=== PATIENT | female | born 1935 | race Hispanic/Latino ===

== ENCOUNTER 2017-04-23 13:24 | Emergency (ER) | payer OTHER, MEDICARE ==
[2017-04-23 13:49] LABS: BASOPHILS % (AUTO) 0.5 % (0.0-5.0); EOSINOPHILS % (AUTO) 3.1 % (0.0-8.0); HEMATOCRIT 35.6 % (36-48); MEAN CORPUSCULAR HEMOGLOBIN 30.4 pg (27.0-33.0); MEAN CORPUSCULAR HGB CONC 33.8 g/dL (32.0-36.0); MEAN CORPUSCULAR VOLUME 89.9 fL (79-99); MONOCYTES % (AUTO) 5.7 % (3.0-13.0); NEUTROPHILS % (AUTO) 70.7 % (40.0-77.0); PLATELET COUNT (AUTO) 290 K/uL (130-400); RED BLOOD CELL COUNT(AUTO) 3.96 MIL/uL (4.00-5.50); RED CELL DISTRIBUTION WIDTH 12.7 % (11.0-15.5); WHITE BLOOD COUNT (AUTO) 7.7 K/uL (4.8-10.8)
[2017-04-23] MEDS ORDERED: IOPAMIDOL-370 75 ML VIAL IV ONE (13:50)
[2017-04-23 13:57] LABS: CARBON DIOXIDE 27 mmol/L (21-32); CHLORIDE 103 mmol/L (101-111); CREATININE 1.2 mg/dL (0.5-1.5); GLOMERULAR FILTR. RATE CALC 46 mL/min (>60); GLUCOSE,RANDOM 272 mg/dL (70-105); SODIUM SERUM 139 mmol/L (136-145); UREA NITROGEN, BLOOD 24 mg/dL (7-18)
[2017-04-23 14:08] LABS: INR 0.91 (0.85-1.15); PARTIAL THROMBOPLASTIN TIME 23.7 SEC (26.3-35.5); PROTHROMBIN TIME 9.6 SEC (9.6-11.6)
[2017-04-23 14:26] LABS: ALANINE AMINOTRANSFERASE 20 U/L (12-78); ALBUMIN 3.5 g/dL (3.5-5.0); ASPARTATE AMINOTRANSFERASE 21 U/L (10-37); BILIRUBIN,TOTAL 0.3 mg/dL (0.2-1.0); CREATINE KINASE MB < 0.5 ng/mL (0.5-3.6); CREATINE KINASE, TOTAL 49 U/L (21-232); TOTAL PROTEIN, SERUM 7.5 g/dL (6.0-8.3)
== END 2017-04-23 17:44 | disposition home or self-care (01) ==
LOC: EDH 13:24
DX: S20.212A Contusion of left front wall of thorax, initial encounter (principal); S30.0XXA Contusion of lower back and pelvis, initial encounter; S09.8XXA Other specified injuries of head, initial encounter; R55 Syncope and collapse; I10 Essential (primary) hypertension; E11.9 Type 2 diabetes mellitus without complications; E78.5 Hyperlipidemia, unspecified; Z95.0 Presence of cardiac pacemaker; Z79.899 Other long term (current) drug therapy; Z79.84 Long term (current) use of oral hypoglycemic drugs; Z88.5 Allergy status to narcotic agent; X58.XXXA Exposure to other specified factors, initial encounter; Y93.89 Activity, other specified; Y92.89 Other specified places as the place of occurrence of the external cause; Y99.8 Other external cause status
CPT/HCPCS: 36415; 70450; 71260; 72125; 74177; 80053; 82550; 82553; 84484; 85025; 85610; 85730; 93005; 99285; Q9967

== ENCOUNTER → 2017-04-30 | Outpatient (CLI) | payer OTHER, MEDICARE ==
[~2017-04-30] MED LIST: CLOP75TA32 PO; ESOM40CA54 PO; GLIM4TAB3 PO; LOSA1TAB54 PO; METF10004 PO; METO50TA18 PO; SIMV40TA5 PO
== END | disposition home or self-care (01) ==
LOC: RAH 13:34
PROVIDERS: ATTEND Family Medicine
DX: I82.402 Acute embolism and thrombosis of unspecified deep veins of left lower extremity (principal); R60.0 Localized edema
CPT/HCPCS: 93971

== ENCOUNTER → 2017-05-22 | Outpatient (CLI) | payer OTHER, MEDICARE | END | disposition home or self-care (01) | LOC: SHCH 15:54 | PROVIDERS: ATTEND Internal Medicine Cardiovascular Disease | DX: I73.9 Peripheral vascular disease, unspecified (principal) | CPT/HCPCS: 93925 ==

== ENCOUNTER → 2017-06-24 | Outpatient (CLI) | payer OTHER, MEDICARE ==
[~2017-06-24] MED LIST changes: +ALBUTEROL SULFATE 0.083% 2.5 MG/3 ML INH IH ONE
== END | disposition home or self-care (01) ==
LOC: RESP 10:25
PROVIDERS: ATTEND Internal Medicine Cardiovascular Disease
DX: R06.02 Shortness of breath (principal)
CPT/HCPCS: 94060; 94727; 94729

== ENCOUNTER → 2017-07-09 | Outpatient (CLI) | payer OTHER, MEDICARE ==
[~2017-07-09] MED LIST changes: -ALBUTEROL SULFATE 0.083% 2.5 MG/3 ML INH IH ONE; +IOPAMIDOL-370 100 ML VIAL IV ONE; +ISOVUE-370 50ML VIAL IV ONE
== END | disposition home or self-care (01) ==
LOC: RAH 08:45
PROVIDERS: ATTEND Internal Medicine Cardiovascular Disease
DX: K80.20 Calculus of gallbladder without cholecystitis without obstruction (principal); I73.9 Peripheral vascular disease, unspecified
CPT/HCPCS: 75635; Q9967 ×2

== ENCOUNTER 2017-08-01 14:23 | Inpatient (IN) | payer OTHER, MEDICARE ==
[~2017-08-01] VITALS: Ht 152.4 cm; Wt 63.4 kg
[2017-08-01 15:36] LABS: BASOPHILS % (AUTO) 0.6 % (0.0-5.0); EOSINOPHILS % (AUTO) 2.2 % (0.0-8.0); HEMATOCRIT 33.1 % (36-48); LYMPHOCYTES % (AUTO) 14.2 % (21.0-51.0); MEAN CORPUSCULAR HEMOGLOBIN 30.8 pg (27.0-33.0); MEAN CORPUSCULAR HGB CONC 33.7 g/dL (32.0-36.0); MEAN CORPUSCULAR VOLUME 91.4 fL (79-99); PLATELET COUNT (AUTO) 237 K/uL (130-400); RED BLOOD CELL COUNT(AUTO) 3.62 MIL/uL (4.00-5.50); RED CELL DISTRIBUTION WIDTH 13.3 % (11.0-15.5); WHITE BLOOD COUNT (AUTO) 8.2 K/uL (4.8-10.8)
[2017-08-01 15:46] LABS: CREATININE 1.4 mg/dL (0.5-1.5); POTASSIUM 4.9 mmol/L (3.5-5.1)
[2017-08-01 15:51] LABS: ALBUMIN 3.5 g/dL (3.5-5.0); BILIRUBIN,TOTAL 0.2 mg/dL (0.2-1.0); TOTAL PROTEIN, SERUM 7.2 g/dL (6.0-8.3)
[2017-08-01 15:56] LABS: INR 0.9 (0.85-1.15); PARTIAL THROMBOPLASTIN TIME 23.1 SEC (26.3-35.5); PROTHROMBIN TIME 9.5 SEC (9.6-11.6)
[2017-08-01] MEDS ORDERED: SILVER SULFADIAZINE CREAM 50 GM TP ONE (17:59)
[2017-08-01 19:10] VITALS: BP 184/70
[2017-08-01] MEDS ORDERED: ESOM40CA54 PO (20:34)
[2017-08-01] MEDS ORDERED: METO50TA18 PO (20:34)
[2017-08-01] MEDS ORDERED: GLIM4TAB3 PO (20:34)
[2017-08-01] MEDS ORDERED: CLOP75TA32 PO (20:34)
[2017-08-01] MEDS ORDERED: SIMV40TA5 PO (20:34)
[2017-08-01] MEDS ORDERED: LOSA1TAB54 PO (20:34)
[2017-08-01] MEDS ORDERED: METF10004 PO (20:34)
[2017-08-01] MEDS ORDERED: MORPHINE SULFATE 2 MG/ML 1ML SYG IVP PRN (21:00)
[2017-08-01] MEDS ORDERED: ONDANSETRON HCL 4 MG/2 ML VIAL IVP PRN (21:00)
[2017-08-01] MEDS: SODIUM CHLORIDE 0.9% 1000ML 1,000 ML IV SCH (21:31)
[2017-08-01] MEDS ORDERED: DEXTROSE 50%-WATER 50 ML DISP.SYRIN IV PRN (21:45)
[2017-08-01] MEDS ORDERED: GLUCAGON 1MG KIT 1 MG ML IM PRN (21:45)
[2017-08-02] VITALS: BP 150/54
[2017-08-02 04:00] VITALS: BP 174/81
[2017-08-02 05:11] LABS: APPEARANCE,URINE Cloudy (CLEAR); BILIRUBIN,URINE Negative (NEGATIVE); COLOR,URINE Yellow (YELLOW); GLUCOSE, URINE (UA) Negative (NEGATIVE); KETONES,URINE Negative (NEGATIVE); LEUKOCYTE ESTERASE ,URINE Large (NEGATIVE); NITRATE,URINE Negative (NEGATIVE); OCCULT BLOOD,URINE Trace (NEGATIVE); PROTEIN,URINE Negative (NEGATIVE); UROBILINOGEN,URINE 0.2 mg/dL (0.2-1.0)
[2017-08-02 05:18] LABS: BACTERIA,URINE Many /HPF (None Seen); MUCUS,URINE Few LPF (None Seen); RBC,URINE 0-1 /HPF (0-1); SQUAMOUS EPITHELIAL CELL,UR Few /HPF (0-2); WBC,URINE 26-50 /HPF (0-1)
[2017-08-02] MEDS: INSULIN HUMULIN R 100 UNIT/ML 3ML SQ SCH ×4 (06:10→21:05)
[2017-08-02 07:22] LABS: HEMOGLOBIN A1C 9.1 % (4.0-6.0)
[2017-08-02 08:00] VITALS: BP 136/68
[2017-08-02] MEDS ORDERED: METFORMIN HCL 500 MG TABLET PO SCH (08:00)
[2017-08-02] MEDS: PANTOPRAZOLE SODIUM 40 MG TABLET.DR PO SCH (08:34)
[2017-08-02] MEDS: GLIMEPIRIDE 2 MG TABLET PO SCH (08:35)
[2017-08-02] MEDS: LOSARTAN/HYDROCHLOROTHIAZIDE 50-12.5MG TABLET PO SCH (08:35)
[2017-08-02] MEDS: METOPROLOL TARTRATE 50 MG TAB PO SCH ×2 (08:35→17:00)
[2017-08-02] MEDS: CLOPIDOGREL BISULFATE 75 MG TAB PO SCH (08:41)
[2017-08-02] MEDS ORDERED: NON-FORMULARY MEDICATION 1 EACH (Glimepiride 4 MG) PO SCH (09:00)
[2017-08-02 12:18] VITALS: BP 144/58
[2017-08-02 16:00] VITALS: BP 141/61
[2017-08-02] MEDS: SODIUM CHLORIDE 0.9% 1000ML 1,000 ML IV SCH (16:45)
[2017-08-02 20:00] VITALS: BP 130/52
[2017-08-02] MEDS ORDERED: ATORVASTATIN CALCIUM 20 MG TABLET PO SCH (21:00)
[2017-08-02] MEDS: PHENAZOPYRIDINE HCL 200 MG TABLET PO SCH (21:04)
[2017-08-03] VITALS: BP 140/56
[2017-08-03 04:00] VITALS: BP 133/50
[2017-08-03] MEDS: PHENAZOPYRIDINE HCL 200 MG TABLET PO SCH ×2 (06:07→14:44)
[2017-08-03] MEDS: GLIMEPIRIDE 2 MG TABLET PO SCH (06:09)
[2017-08-03] MEDS: INSULIN HUMULIN R 100 UNIT/ML 3ML SQ SCH ×2 (06:09→11:30)
[2017-08-03 07:00] VITALS: BP 159/65
[2017-08-03 07:17] LABS: BASOPHILS % (AUTO) 0.4 % (0.0-5.0); HEMATOCRIT 33.9 % (36-48); LYMPHOCYTES % (AUTO) 16.5 % (21.0-51.0); MEAN CORPUSCULAR HEMOGLOBIN 30.9 pg (27.0-33.0); MEAN CORPUSCULAR HGB CONC 34.2 g/dL (32.0-36.0); MEAN CORPUSCULAR VOLUME 90.4 fL (79-99); MONOCYTES % (AUTO) 5.9 % (3.0-13.0); NEUTROPHILS % (AUTO) 75.2 % (40.0-77.0); PLATELET COUNT (AUTO) 235 K/uL (130-400); RED BLOOD CELL COUNT(AUTO) 3.75 MIL/uL (4.00-5.50); RED CELL DISTRIBUTION WIDTH 13.3 % (11.0-15.5); WHITE BLOOD COUNT (AUTO) 7.6 K/uL (4.8-10.8)
[2017-08-03 07:33] LABS: ALBUMIN 3.2 g/dL (3.5-5.0); BILIRUBIN,TOTAL 0.4 mg/dL (0.2-1.0); CREATININE 1.2 mg/dL (0.5-1.5); POTASSIUM 4.1 mmol/L (3.5-5.1); TOTAL PROTEIN, SERUM 6.9 g/dL (6.0-8.3)
[2017-08-03] MEDS: LOSARTAN/HYDROCHLOROTHIAZIDE 50-12.5MG TABLET PO SCH (08:26)
[2017-08-03] MEDS: METOPROLOL TARTRATE 50 MG TAB PO SCH (08:27)
[2017-08-03] MEDS: CLOPIDOGREL BISULFATE 75 MG TAB PO SCH (08:27)
[2017-08-03] MEDS: PANTOPRAZOLE SODIUM 40 MG TABLET.DR PO SCH (08:27)
[2017-08-03 11:00] VITALS: BP 148/72
[2017-08-03] MEDS: SODIUM CHLORIDE 0.9% 1000ML 1,000 ML IV SCH ×2 (12:45→16:03)
== END 2017-08-03 15:55 | disposition home or self-care (01) | DRG 935 ==
LOC: EDH 14:23 → EDHIP 17:35 → OBSVTOIN 17:35 → 3CH 19:10
PROVIDERS: ADMIT Surgery; ATTEND Surgery
DX: T25.222A Burn of second degree of left foot, initial encounter (principal); E11.51 Type 2 diabetes mellitus with diabetic peripheral angiopathy without gangrene; T25.221A Burn of second degree of right foot, initial encounter; E78.5 Hyperlipidemia, unspecified; I10 Essential (primary) hypertension; Z95.2 Presence of prosthetic heart valve; Z83.3 Family history of diabetes mellitus; Z82.49 Family history of ischemic heart disease and other diseases of the circulatory system
CPT/HCPCS: 36415; 80053; 81001; 82948; 83036; 85025; 85610; 85730; 87088; 87186; J1815; J7030

== ENCOUNTER → 2017-10-29 | Outpatient (CLI) | payer OTHER, MEDICARE ==
[~2017-10-29] MED LIST changes: +AEC81 PO; +CILO50TA PO; -IOPAMIDOL-370 100 ML VIAL IV ONE; -ISOVUE-370 50ML VIAL IV ONE; +METF-446 PO; -METF10004 PO; +REGADENOSON 0.4 MG/5 ML PF SYG IVP SCH
== END | disposition home or self-care (01) ==
LOC: SHCH 09:36
PROVIDERS: ATTEND Internal Medicine Cardiovascular Disease
DX: I25.10 Atherosclerotic heart disease of native coronary artery without angina pectoris (principal); I10 Essential (primary) hypertension
CPT/HCPCS: 78452; 93017; 96374; A9500 ×2; J2785

== ENCOUNTER 2017-12-21 12:30 | Day surgery (SDC) | payer OTHER, MEDICARE ==
[2017-12-18 10:59] VITALS: BP 187/58
[2017-12-18 11:17] LABS: APPEARANCE,URINE CLEAR (CLEAR); BILIRUBIN,URINE NEGATIVE (NEGATIVE); COLOR,URINE YELLOW (YELLOW); GLUCOSE, URINE (UA) NEGATIVE (NEGATIVE); KETONES,URINE NEGATIVE (NEGATIVE); LEUKOCYTE ESTERASE ,URINE MODERATE (NEGATIVE); NITRATE,URINE NEGATIVE (NEGATIVE); OCCULT BLOOD,URINE NEGATIVE (NEGATIVE); PROTEIN,URINE NEGATIVE (NEGATIVE); UROBILINOGEN,URINE 0.2 mg/dL (0.2-1.0)
[2017-12-18 11:19] LABS: BASOPHILS % (AUTO) 0.5 % (0.0-5.0); EOSINOPHILS % (AUTO) 2.2 % (0.0-8.0); HEMATOCRIT 32.3 % (36-48); LYMPHOCYTES % (AUTO) 16.3 % (21.0-51.0); MEAN CORPUSCULAR HEMOGLOBIN 29.1 pg (27.0-33.0); MONOCYTES % (AUTO) 6.6 % (3.0-13.0); NEUTROPHILS % (AUTO) 74.4 % (40.0-77.0); PLATELET COUNT (AUTO) 257 K/uL (130-400); RED BLOOD CELL COUNT(AUTO) 3.55 MIL/uL (4.00-5.50); WHITE BLOOD COUNT (AUTO) 7.1 K/uL (4.8-10.8)
[2017-12-18 11:30] LABS: CREATININE 1.4 mg/dL (0.5-1.5); POTASSIUM 4.5 mmol/L (3.5-5.1)
[2017-12-18 11:53] LABS: INR 0.94 (0.85-1.15); PARTIAL THROMBOPLASTIN TIME 25.9 SEC (26.3-35.5); PROTHROMBIN TIME 9.9 SEC (9.6-11.6)
[2017-12-18 12:53] LABS: BACTERIA,URINE Moderate /HPF (None Seen); RBC,URINE 0-1 /HPF (0-1)
[~2017-12-21] VITALS: Ht 152.4 cm; Wt 64.0 kg
[~2017-12-21 12:30] MED LIST changes: +ACETAMINOPHEN 325 MG TAB PO PRN; -REGADENOSON 0.4 MG/5 ML PF SYG IVP SCH; +SODIUM CHLORIDE 0.9% 1000ML 1,000 ML IV ONE; +SODIUM CHLORIDE 0.9% 1000ML 1,000 ML IV SCH; +SODIUM CHLORIDE 0.9% 500ML 500 ML IV SCH
[2017-12-21 12:40] VITALS: BP 148/62
[2017-12-21] MEDS ORDERED: SODIUM BICARB 50MEQ 50ML VIAL ONE (13:38)
[2017-12-21] MEDS ORDERED: LIDOCAINE HCL-MPF 2% 5ML VIAL ONE (13:38)
[2017-12-21] MEDS ORDERED: HEPARIN SODIUM 1000UNIT/ML 10ML VIAL ONE (13:39)
[2017-12-21] MEDS ORDERED: NITROGLYCERIN 5 MG/ML 10 ML VIAL IV ONE (13:39)
[2017-12-21] MEDS ORDERED: IODIXANOL 320 MG/ML 100 ML VIAL ONE (13:39)
[2017-12-21] MEDS ORDERED: MEPERIDINE-PF 25 MG/ML SYG ONE (14:22)
[2017-12-21] MEDS ORDERED: MIDAZOLAM HCL 1 MG/ML 2ML VIAL ONE (14:22)
[2017-12-21] MEDS ORDERED: LABETALOL HCL 5 MG/ML 20ML VIAL IV ONE (15:18)
[2017-12-21] MEDS ORDERED: HYDRALAZINE HCL 20 MG/ML VIAL ONE (15:32)
[2017-12-21] MEDS ORDERED: DEXTROSE 50%-WATER 50 ML DISP.SYRIN IV PRN (16:00)
[2017-12-21] MEDS ORDERED: GLUCAGON 1MG KIT 1 MG ML IM PRN (16:00)
[2017-12-21] MEDS ORDERED: SODIUM CHLORIDE 0.9% 1000ML 1,000 ML IV SCH (16:30)
[2017-12-21] MEDS ORDERED: INSULIN HUMULIN R 100 UNIT/ML 3ML SQ SCH (16:30)
[2017-12-21 16:33] VITALS: BP 105/45
[2017-12-21 16:48] VITALS: BP 112/49
[2017-12-21 17:03] VITALS: BP 120/47
[2017-12-21 17:18] VITALS: BP 124/49
[2017-12-21 18:06] VITALS: BP 120/50
== END 2017-12-21 20:19 | disposition home or self-care (01) ==
LOC: DAH 12:30
PROVIDERS: ATTEND Internal Medicine Cardiovascular Disease
DX: I70.0 Atherosclerosis of aorta (principal); I77.1 Stricture of artery; I70.1 Atherosclerosis of renal artery; I25.10 Atherosclerotic heart disease of native coronary artery without angina pectoris; Z95.1 Presence of aortocoronary bypass graft; Z88.6 Allergy status to analgesic agent; I73.9 Peripheral vascular disease, unspecified; Z79.899 Other long term (current) drug therapy; Z79.01 Long term (current) use of anticoagulants; Z79.82 Long term (current) use of aspirin; I10 Essential (primary) hypertension; E11.9 Type 2 diabetes mellitus without complications; E78.5 Hyperlipidemia, unspecified; Z86.73 Personal history of transient ischemic attack (TIA), and cerebral infarction without residual deficits
CPT/HCPCS: 36252; 36415 ×2; 37221; 37236; 71045; 75716; 80048; 81001; 82948 ×2; 85025; 85347; 85610; 85730; 93005; A4606; C1725 ×2; C1760 ×2; C1769 ×3; C1876 ×3; C1887; C1894 ×4; J0360; J1644 ×2; J2175; J2250; J3490 ×4; J7030; Q9967; 99156; 99157

== ENCOUNTER → 2017-12-23 | Outpatient (CLI) | payer OTHER, MEDICARE ==
[~2017-12-23] MED LIST changes: -ACETAMINOPHEN 325 MG TAB PO PRN; -ESOM40CA54 PO; -SODIUM CHLORIDE 0.9% 1000ML 1,000 ML IV ONE; -SODIUM CHLORIDE 0.9% 1000ML 1,000 ML IV SCH; -SODIUM CHLORIDE 0.9% 500ML 500 ML IV SCH
== END | disposition home or self-care (01) ==
LOC: RAH 13:18
PROVIDERS: ATTEND Internal Medicine Cardiovascular Disease
DX: I72.4 Aneurysm of artery of lower extremity (principal); I25.10 Atherosclerotic heart disease of native coronary artery without angina pectoris; E11.9 Type 2 diabetes mellitus without complications; I10 Essential (primary) hypertension; Z79.899 Other long term (current) drug therapy
CPT/HCPCS: 76882

== ENCOUNTER → 2018-04-29 | Outpatient (CLI) | payer OTHER, MEDICARE | END | disposition home or self-care (01) | LOC: SHCH 09:26 | PROVIDERS: ATTEND Internal Medicine Cardiovascular Disease | DX: I65.23 Occlusion and stenosis of bilateral carotid arteries (principal) | CPT/HCPCS: 93880 ==

== ENCOUNTER → 2018-05-13 | Outpatient (CLI) | payer OTHER, MEDICARE | END | disposition home or self-care (01) | LOC: OIH 13:41 | PROVIDERS: ATTEND Family Medicine | DX: I13.0 Hypertensive heart and chronic kidney disease with heart failure and stage 1 through stage 4 chronic kidney disease, or unspecified chronic kidney disease (principal); E11.22 Type 2 diabetes mellitus with diabetic chronic kidney disease; I50.9 Heart failure, unspecified; N18.9 Chronic kidney disease, unspecified; Z95.0 Presence of cardiac pacemaker | CPT/HCPCS: 71046 ==

== ENCOUNTER → 2018-05-20 | Outpatient (CLI) | payer OTHER, MEDICARE | END | disposition home or self-care (01) | LOC: RAH 12:57 | PROVIDERS: ATTEND Family Medicine | DX: E11.51 Type 2 diabetes mellitus with diabetic peripheral angiopathy without gangrene (principal); I13.0 Hypertensive heart and chronic kidney disease with heart failure and stage 1 through stage 4 chronic kidney disease, or unspecified chronic kidney disease; E11.22 Type 2 diabetes mellitus with diabetic chronic kidney disease; I50.9 Heart failure, unspecified; N18.9 Chronic kidney disease, unspecified; I70.90 Unspecified atherosclerosis | CPT/HCPCS: 93925 ==

== ENCOUNTER → 2018-11-09 | Outpatient (CLI) | payer OTHER, MEDICARE | END | disposition home or self-care (01) | LOC: SHCH 10:41 | PROVIDERS: ATTEND Internal Medicine Cardiovascular Disease | DX: I08.0 Rheumatic disorders of both mitral and aortic valves (principal); I11.9 Hypertensive heart disease without heart failure | CPT/HCPCS: 93306 ==

== ENCOUNTER 2018-12-10 10:38 | Day surgery (SDC) | payer OTHER, MEDICARE ==
[2018-12-07 12:37] VITALS: BP 177/90
[2018-12-07 13:05] LABS: BILIRUBIN,URINE Negative (NEGATIVE); COLOR,URINE Yellow (YELLOW); GLUCOSE, URINE (UA) Negative (NEGATIVE); KETONES,URINE Negative (NEGATIVE); LEUKOCYTE ESTERASE ,URINE Moderate (NEGATIVE); NITRATE,URINE Negative (NEGATIVE); OCCULT BLOOD,URINE Negative (NEGATIVE); PH,URINE 5.5 (5.0-8.0); PROTEIN,URINE POS 1+ mg/dL (NEGATIVE)
[2018-12-07 13:10] LABS: BASOPHILS % (AUTO) 0.5 % (0.0-5.0); EOSINOPHILS % (AUTO) 4.2 % (0.0-8.0); HEMATOCRIT 30.2 % (36-48); MEAN CORPUSCULAR HEMOGLOBIN 31.4 pg (27.0-33.0); MEAN CORPUSCULAR HGB CONC 33.9 g/dL (32.0-36.0); MEAN CORPUSCULAR VOLUME 92.5 fL (79-99); MONOCYTES % (AUTO) 7.8 % (3.0-13.0); NEUTROPHILS % (AUTO) 67.5 % (40.0-77.0); PLATELET COUNT (AUTO) 234 K/uL (130-400); RED BLOOD CELL COUNT(AUTO) 3.27 MIL/uL (4.00-5.50); RED CELL DISTRIBUTION WIDTH 12.8 % (11.0-15.5); WHITE BLOOD COUNT (AUTO) 6.9 K/uL (4.8-10.8)
[2018-12-07 13:13] LABS: APPEARANCE,URINE SLIGHTLY CLOUDY (CLEAR)
[2018-12-07 13:20] LABS: INR 0.93 (0.85-1.15); PARTIAL THROMBOPLASTIN TIME 24.3 SEC (26.3-35.5); PROTHROMBIN TIME 9.8 SEC (9.6-11.6)
[2018-12-07 13:22] LABS: CREATININE 1.1 mg/dL (0.5-1.5); POTASSIUM 4.6 mmol/L (3.5-5.1)
[2018-12-07 13:52] LABS: BACTERIA,URINE Many /HPF (None Seen); RBC,URINE None Seen /HPF (0-1); WBC,URINE 26-50 /HPF (0-1)
[2018-12-07 14:00] VITALS: BP 165/62
--- NOTE | 2018-12-09 11:28 | NUR ---
LABS INFORMED ANITA DOMÍNGUEZ OF ABNORMAL UA/H&H. NO ORDERS RECEIVED. PROCEED WITH PLANNED PROCEDURE.
[2018-12-10] VITALS (8 sets, daily range): BP systolic 121–154; BP diastolic 36–65
[~2018-12-10] VITALS: Ht 152.4 cm; Wt 61.8 kg
[~2018-12-10 10:38] MED LIST changes: +ACETAMINOPHEN 325 MG TAB PO PRN; -CILO50TA PO; +ESOM40CA54 PO; +FLUO-126 PO; -GLIM4TAB3 PO; +GLIM4TAB5 PO; +LOSA100T58 PO; -LOSA1TAB54 PO; +SODIUM CHLORIDE 0.9% 500ML 500 ML IV SCH
[2018-12-10] MEDS ORDERED: SODIUM CHLORIDE 0.9% 1000ML 1,000 ML IV ONE (12:28)
[2018-12-10] MEDS ORDERED: LIDOCAINE HCL 2% 20ML ONE ×2 (13:26→14:18)
[2018-12-10] MEDS ORDERED: IOHEXOL 350 MG/ML 100ML INFUS..BTL IV ONE (13:26)
[2018-12-10] MEDS ORDERED: HEPARIN SODIUM 1000UNIT/ML 10ML VIAL ONE (13:26)
[2018-12-10] MEDS ORDERED: NITROGLYCERIN 5 MG/ML 10 ML VIAL IV ONE (13:26)
[2018-12-10] MEDS ORDERED: SODIUM BICARB 50MEQ 50ML VIAL ONE (13:27)
[2018-12-10] MEDS ORDERED: MEPERIDINE-PF 25 MG/ML SYG ONE (14:05)
[2018-12-10] MEDS ORDERED: MIDAZOLAM HCL 1 MG/ML 2ML VIAL ONE (14:06)
[2018-12-10] MEDS ORDERED: HYDRALAZINE HCL 20 MG/ML VIAL ONE (14:51)
[2018-12-10] MEDS ORDERED: DEXTROSE 50%-WATER 50 ML DISP.SYRIN IV PRN (15:30)
[2018-12-10] MEDS ORDERED: SODIUM CHLORIDE 0.9% 10 ML VIAL IVP SCH (15:30)
[2018-12-10] MEDS ORDERED: GLUCAGON 1MG KIT 1 MG ML IM PRN (15:30)
[2018-12-10] MEDS ORDERED: ONDANSETRON HCL 4 MG/2 ML VIAL IVP STA (15:58)
[2018-12-10] MEDS ORDERED: ONDANSETRON HCL 4 MG/2 ML VIAL ONE (16:01)
[2018-12-10] MEDS ORDERED: INSULIN HUMULIN R 100 UNIT/ML 3ML SQ SCH (16:30)
== END 2018-12-10 19:18 | disposition home or self-care (01) ==
LOC: DAH 10:38
PROVIDERS: ATTEND Internal Medicine Cardiovascular Disease
DX: I25.10 Atherosclerotic heart disease of native coronary artery without angina pectoris (principal); I70.0 Atherosclerosis of aorta; I35.1 Nonrheumatic aortic (valve) insufficiency; I35.0 Nonrheumatic aortic (valve) stenosis; E11.9 Type 2 diabetes mellitus without complications; I10 Essential (primary) hypertension; E78.5 Hyperlipidemia, unspecified; Z88.5 Allergy status to narcotic agent; Z79.899 Other long term (current) drug therapy; Z79.01 Long term (current) use of anticoagulants; Z79.84 Long term (current) use of oral hypoglycemic drugs; Z86.73 Personal history of transient ischemic attack (TIA), and cerebral infarction without residual deficits; Z95.5 Presence of coronary angioplasty implant and graft; Z98.890 Other specified postprocedural states; Z82.49 Family history of ischemic heart disease and other diseases of the circulatory system; Z83.3 Family history of diabetes mellitus
CPT/HCPCS: 36415; 71045; 75630; 80048; 81001; 82948 ×2; 85025; 85610; 85730; 93005; 93461; 93567; A4216; A4221; A4222; A4223 ×3; A4606; C1760; C1769 ×2; C1893; C1894 ×2; J0360; J1644; J2175; J2250; J2405; J3490 ×4; J7030; Q9965; Q9967; 75625; 75716; 99156; 99157

== ENCOUNTER → 2019-01-03 | Outpatient (CLI) | payer OTHER, MEDICARE ==
[~2019-01-03] MED LIST changes: -ACETAMINOPHEN 325 MG TAB PO PRN; -ESOM40CA54 PO; +IOHEXOL-350 50ML VIAL IV ONE; +IOHEXOL-350 75 ML VIAL IV ONE; +SIMV-46 PO; -SIMV40TA5 PO; -SODIUM CHLORIDE 0.9% 500ML 500 ML IV SCH
== END | disposition home or self-care (01) ==
LOC: RAH 07:43
PROVIDERS: ATTEND Internal Medicine Cardiovascular Disease
DX: I73.9 Peripheral vascular disease, unspecified (principal); I35.0 Nonrheumatic aortic (valve) stenosis; I70.0 Atherosclerosis of aorta
CPT/HCPCS: 74174; 75574; Q9967 ×2

== ENCOUNTER 2019-02-08 03:30 | Observation (INO) | payer OTHER, MEDICARE ==
[~2019-02-08] VITALS: Ht 152.4 cm; Wt 56.7 kg
[~2019-02-08 03:30] MED LIST changes: -FLUO-126 PO; +FLUO20CA34 PO; -IOHEXOL-350 50ML VIAL IV ONE; -IOHEXOL-350 75 ML VIAL IV ONE
[2019-02-08 04:03] LABS: BASOPHILS % (AUTO) 0.8 % (0.0-5.0); EOSINOPHILS % (AUTO) 3.5 % (0.0-8.0); HEMATOCRIT 28.7 % (36-48); LYMPHOCYTES % (AUTO) 13.4 % (21.0-51.0); MEAN CORPUSCULAR HGB CONC 33.1 g/dL (32.0-36.0); MEAN CORPUSCULAR VOLUME 90.6 fL (79-99); MONOCYTES % (AUTO) 7.7 % (3.0-13.0); NEUTROPHILS % (AUTO) 74.6 % (40.0-77.0); PLATELET COUNT (AUTO) 300 K/uL (130-400); RED BLOOD CELL COUNT(AUTO) 3.17 MIL/uL (4.00-5.50); RED CELL DISTRIBUTION WIDTH 14.1 % (11.0-15.5); WHITE BLOOD COUNT (AUTO) 7.3 K/uL (4.8-10.8)
[2019-02-08 04:17] LABS: CARBON DIOXIDE 27 mmol/L (21-32); CHLORIDE 106 mmol/L (101-111); CREATININE 0.6 mg/dL (0.5-1.5); GLOMERULAR FILTR. RATE CALC 101 mL/min (>60); GLUCOSE,RANDOM 76 mg/dL (70-105); SODIUM SERUM 143 mmol/L (136-145); UREA NITROGEN, BLOOD 20 mg/dL (7-18)
[2019-02-08 04:21] LABS: INR 0.96 (0.85-1.15); PARTIAL THROMBOPLASTIN TIME 23.8 SEC (26.3-35.5); PROTHROMBIN TIME 10.1 SEC (9.6-11.6)
[2019-02-08 04:28] LABS: ALANINE AMINOTRANSFERASE 13 U/L (12-78); ALBUMIN 3.2 g/dL (3.5-5.0); ASPARTATE AMINOTRANSFERASE 21 U/L (10-37); BILIRUBIN,TOTAL 0.3 mg/dL (0.2-1.0); CREATINE KINASE, TOTAL 26 U/L (21-232); MYOGLOBIN 44 ng/mL (10-92); TOTAL PROTEIN, SERUM 7.1 g/dL (6.0-8.3); TROPONIN I < 0.04 ng/mL (0.00-0.06)
[2019-02-08 04:48] LABS: APPEARANCE,URINE Clear (CLEAR); BILIRUBIN,URINE Negative (NEGATIVE); COLOR,URINE Yellow (YELLOW); GLUCOSE, URINE (UA) Negative (NEGATIVE); KETONES,URINE Negative (NEGATIVE); LEUKOCYTE ESTERASE ,URINE Negative (NEGATIVE); NITRATE,URINE Negative (NEGATIVE); OCCULT BLOOD,URINE Negative (NEGATIVE); PROTEIN,URINE POS 1+ mg/dL (NEGATIVE); UROBILINOGEN,URINE 0.2 mg/dL (0.2-1.0)
[2019-02-08] MEDS: SODIUM CHLORIDE 0.9% 1000ML 1,000 ML IV SCH ×2 (08:00→19:46)
[2019-02-08] MEDS ORDERED: PANTOPRAZOLE SODIUM 40 MG TABLET.DR PO ONE (08:18)
[2019-02-08] MEDS ORDERED: ASPIRIN 325 MG TABLET ONE (08:18)
[2019-02-08] MEDS ORDERED: SODIUM CHLORIDE 0.9% 1000ML 1,000 ML IV ONE (08:19)
[2019-02-08] MEDS: PANTOPRAZOLE SODIUM 40 MG TABLET.DR PO SCH (08:45)
[2019-02-08] MEDS: ASPIRIN 325 MG TABLET PO SCH (08:45)
[2019-02-08 09:05] VITALS: BP 146/52
[2019-02-08 11:00] VITALS: BP 147/55
[2019-02-08] MEDS: INSULIN R PO SS2 SQ SCH ×3 (11:30→20:26)
[2019-02-08 16:00] VITALS: BP 151/74
--- NOTE | 2019-02-08 16:00 | NUR ---
INITIAL CM ASSESSMENT MET W PATIENT WITH SON & DAUGHTER IN LAW AT BEDSIDE; PT AAOX3, LIVES W SPOUSE & ANOTHER ADULT DAUGHTER; PT HAD RECENT TAVR IN [facility]; THEN HAD A SYNCOPAL EPISODE RECENTLY, WAS DISCHARGED FROM BUT APPARENTLY COULD NOT GET OUT OF BED OR FELL, DIFFERENT EXPLANATION OF PROBLEMS; PT HAS A HH - [facility]- ALREADY SET UP THROUGH DR. CAMACHO BUT WAS SUPPOSED TO START YESTERDAY BUT DID NOT. PT AND FAMILY WILL DECLINE ANY KIND OF PLACEMENT FOR REHAB, ETC; DCP IS HOME PT MAKES OWN DECISIONS, BUT SON HAS DURABLE POA; THEY WANT TO DO MEDICAL POA ON THIS ADMIT, CALL TO JOE, LEFT SON'S NUMBER FOR FOLLOW UP IN AM ; Addendum: 02/08/19 at 1807 by YANNICK HARKINS RN CM Amended: Links added.
[2019-02-08] MEDS ORDERED: PANT40TA PO (17:04)
[2019-02-08] MEDS ORDERED: FURO40TA7 PO (17:04)
[2019-02-08 19:45] VITALS: BP 153/58
[2019-02-08 23:45] VITALS: BP 147/65
[2019-02-09] VITALS (7 sets, daily range): BP systolic 101–191; BP diastolic 43–86
[2019-02-09] MEDS: INSULIN R PO SS2 SQ SCH ×4 (06:48→20:52)
[2019-02-09] MEDS: SODIUM CHLORIDE 0.9% 1000ML 1,000 ML IV SCH ×2 (07:32→18:30)
--- NOTE | 2019-02-09 08:08 | NUR ---
HYPERTENSION Blood pressure at this time is 191/86. Home medications pending to be restarted. No PRN antihypertensives. Dr. Harper was paged. Pending for him to call back. Spoke to Pj at his office, stated Dr. Harper is not in office yet and to call cell. Cell not answering. Will try again.
[2019-02-09] MEDS ORDERED: CLONIDINE HCL 0.2 MG TABLET PO ONE (08:24)
[2019-02-09] MEDS ORDERED: CLONIDINE HCL 0.2 MG TABLET PO PRN (08:30)
--- NOTE | 2019-02-09 08:30 | NUR ---
FOLLOW UP Covered with clonidine 0.2mg PO as ordered by Dr. Harper. Patient took her home antihypertensives metoprolol and losartan.
[2019-02-09] MEDS: ASPIRIN 325 MG TABLET PO SCH (10:15)
[2019-02-09] MEDS: PANTOPRAZOLE SODIUM 40 MG TABLET.DR PO SCH (10:15)
[2019-02-09] MEDS ORDERED: MAGNESIUM 2GM PREMIX 50ML 50 ML IV PRN (13:45)
[2019-02-09] MEDS: BISACODYL 5 MG TABLET.DR PO PRN ×2 (14:52→22:58)
[2019-02-09] MEDS: METOPROLOL TARTRATE 50 MG TAB PO SCH (18:29)
[2019-02-09] MEDS: METFORMIN HCL 500 MG TABLET PO SCH (18:29)
[2019-02-10 03:31] VITALS: BP 137/52
[2019-02-10] MEDS: SODIUM CHLORIDE 0.9% 1000ML 1,000 ML IV SCH (07:04)
[2019-02-10] MEDS: INSULIN R PO SS2 SQ SCH (07:30)
[2019-02-10 08:00] VITALS: BP 144/59
--- NOTE | 2019-02-10 08:56 | NUR ---
NURSING NOTE Spoke to Dr. Harper. Informed him report from 2D Echo in chart and EF 45-50%. Stated he will be here in a couple of hours. Charge nurse notified.
[2019-02-10] MEDS ORDERED: ASPIRIN 81 MG EC TAB PO SCH (09:00)
[2019-02-10] MEDS ORDERED: PANTOPRAZOLE SODIUM 40 MG TABLET.DR PO SCH (09:00)
[2019-02-10] MEDS ORDERED: CLOPIDOGREL BISULFATE 75 MG TAB PO SCH (09:00)
[2019-02-10] MEDS ORDERED: GLIMEPIRIDE 2 MG TABLET PO SCH (09:00)
[2019-02-10] MEDS ORDERED: LOSARTAN 100 MG TABLET PO SCH (09:00)
[2019-02-10] MEDS ORDERED: BISACODYL 10 MG SUPP.RECT RC SCH (09:15)
[2019-02-10] MEDS ORDERED: BISACODYL 10 MG SUPP.RECT RC ONE (09:32)
[2019-02-10] MEDS: METFORMIN HCL 500 MG TABLET PO SCH (09:41)
[2019-02-10] MEDS: METOPROLOL TARTRATE 50 MG TAB PO SCH (09:41)
[2019-02-10] MEDS: PANTOPRAZOLE SODIUM 40 MG TABLET.DR PO SCH (09:41)
[2019-02-10] MEDS: FUROSEMIDE 40 MG TABLET PO SCH ×2 (09:41→09:42)
[2019-02-10 11:50] VITALS: BP 166/72
== END 2019-02-10 13:25 | disposition home or self-care (01) ==
LOC: EDH 03:30 → EDHIP 07:15 → 3DH 08:53
PROVIDERS: ADMIT Family Medicine; ATTEND Family Medicine
DX: R53.1 Weakness (principal); I38 Endocarditis, valve unspecified; R55 Syncope and collapse; E78.5 Hyperlipidemia, unspecified; I10 Essential (primary) hypertension; E11.9 Type 2 diabetes mellitus without complications; I42.9 Cardiomyopathy, unspecified; K59.00 Constipation, unspecified; E83.42 Hypomagnesemia; Z86.73 Personal history of transient ischemic attack (TIA), and cerebral infarction without residual deficits; Z95.2 Presence of prosthetic heart valve; Z79.4 Long term (current) use of insulin; Z79.899 Other long term (current) drug therapy; Z88.5 Allergy status to narcotic agent; Z88.2 Allergy status to sulfonamides
CPT/HCPCS: 36415 ×3; 70450; 71045; 72125; 80053; 81003; 82550; 82948 ×10; 83605; 83735 ×3; 83874; 84145; 84484; 85025; 85610; 85730; 87040 ×2; 87088; 93005; 93306; 96361 ×2; 96372; 96374; 97039 ×2; 97116 ×2; 97161; 99284; A4510; G0378 ×53; G8978; G8979; G8980; G8981; G8982; G8983; J1815 ×2; J3475; J7030

== ENCOUNTER → 2020-03-19 | Outpatient (CLI) | payer OTHER, MEDICARE ==
[~2020-03-19] MED LIST changes: -FLUO20CA34 PO; +FURO40TA7 PO; +GLIM4TAB36 PO; -GLIM4TAB5 PO; +PANT40TA PO; -SIMV-46 PO
== END | disposition home or self-care (01) ==
LOC: SHCH 09:50
PROVIDERS: ATTEND Internal Medicine Cardiovascular Disease
DX: I35.0 Nonrheumatic aortic (valve) stenosis (principal)
CPT/HCPCS: 93306

== ENCOUNTER 2020-04-13 05:52 | Day surgery (SDC) | payer OTHER, MEDICARE ==
[2020-04-11 09:37] VITALS: BP 186/70
[2020-04-11 10:29] LABS: BASOPHILS % (AUTO) 0.7 % (0.0-5.0); EOSINOPHILS % (AUTO) 3.8 % (0.0-8.0); HEMATOCRIT 27.8 % (36-48); LYMPHOCYTES % (AUTO) 16.9 % (21.0-51.0); MEAN CORPUSCULAR HEMOGLOBIN 27.9 pg (27.0-33.0); MEAN CORPUSCULAR HGB CONC 31.3 g/dL (32.0-36.0); MEAN CORPUSCULAR VOLUME 89.1 fL (79-99); NEUTROPHILS % (AUTO) 72.3 % (40.0-77.0); PLATELET COUNT (AUTO) 637 K/uL (130-400); RED BLOOD CELL COUNT(AUTO) 3.12 MIL/uL (4.00-5.50); RED CELL DISTRIBUTION WIDTH 14.5 % (11.0-15.5); WHITE BLOOD COUNT (AUTO) 6.8 K/uL (4.8-10.8)
[2020-04-11 10:37] LABS: CREATININE 1.3 mg/dL (0.5-1.5); POTASSIUM 4.8 mmol/L (3.5-5.1)
[2020-04-11 10:41] LABS: PROTHROMBIN TIME 10.9 SEC (9.6-11.6)
[2020-04-13] VITALS (11 sets, daily range): BP systolic 128–160; BP diastolic 47–82
[~2020-04-13] VITALS: Ht 152.4 cm; Wt 50.6 kg
[~2020-04-13 05:52] MED LIST changes: +SODIUM CHLORIDE 0.9% 1000ML 1,000 ML IV SCH
[2020-04-13] MEDS ORDERED: LIDOCAINE HCL 1% MDV 50ML VIAL ONE (07:10)
[2020-04-13] MEDS ORDERED: BUPIVACAINE/PF 0.25% 30ML VIAL IJ ONE (07:10)
[2020-04-13] MEDS ORDERED: CEFAZOLIN SODIUM 1 GM VIAL ONE (07:10)
[2020-04-13] MEDS ORDERED: ATOR20TA65 PO (07:11)
[2020-04-13] MEDS ORDERED: AMLO-257 PO (07:11)
[2020-04-13] MEDS ORDERED: DOCUSATE PO (07:15)
[2020-04-13] MEDS ORDERED: MEPERIDINE-PF 25 MG/ML SYG ONE ×3 (07:33→07:53)
[2020-04-13] MEDS ORDERED: MIDAZOLAM HCL 1 MG/ML 2ML VIAL ONE ×3 (07:33→07:53)
[2020-04-13] MEDS ORDERED: IOHEXOL-350 50ML VIAL IV ONE (07:36)
[2020-04-13] MEDS ORDERED: THROMBIN-JMI 5000 UNIT/VIAL TP ONE (09:01)
[2020-04-13] MEDS ORDERED: ACETAMINOPHEN 325 MG TAB PO PRN ×2 (10:00)
[2020-04-13] MEDS ORDERED: CEFAZOLIN SODIUM 1 GM VIAL IVP SCH (16:00)
== END 2020-04-13 16:35 | disposition home or self-care (01) ==
LOC: DAH 05:52
PROVIDERS: ATTEND Internal Medicine Cardiovascular Disease
DX: I49.5 Sick sinus syndrome (principal); I25.5 Ischemic cardiomyopathy; I10 Essential (primary) hypertension; E78.5 Hyperlipidemia, unspecified; E11.9 Type 2 diabetes mellitus without complications; Z86.73 Personal history of transient ischemic attack (TIA), and cerebral infarction without residual deficits; Z82.49 Family history of ischemic heart disease and other diseases of the circulatory system; Z98.890 Other specified postprocedural states; Z88.6 Allergy status to analgesic agent; Z79.01 Long term (current) use of anticoagulants
CPT/HCPCS: 33225; 33229; 36415; 71045; 80048; 82948 ×2; 85025; 85610; 85730; 93005; 93306; A4215; A4216; A4221; A4222; A4223 ×3; A4606; A4663; C1769 ×5; C1894; C1900; C2621; J0690 ×2; J2175 ×3; J2250 ×3; J3490 ×3; J7030; Q9967; 99156; 99157

== ENCOUNTER → 2022-05-21 | Outpatient (CLI) | payer OTHER, MEDICARE ==
[~2022-05-21] MED LIST changes: -AEC81 PO; +ATOR20TA65 PO; +CLOP-31 PO; -CLOP75TA32 PO; +FLUO20CA36 PO; -FURO40TA7 PO; -GLIM4TAB36 PO; +LEVO-70 PO; -PANT40TA PO; -SODIUM CHLORIDE 0.9% 1000ML 1,000 ML IV SCH
== END | disposition home or self-care (01) ==
LOC: SHCH 12:36
PROVIDERS: ATTEND Internal Medicine Cardiovascular Disease
DX: I08.0 Rheumatic disorders of both mitral and aortic valves (principal); E11.9 Type 2 diabetes mellitus without complications; I25.10 Atherosclerotic heart disease of native coronary artery without angina pectoris; I10 Essential (primary) hypertension; E78.5 Hyperlipidemia, unspecified; Z95.2 Presence of prosthetic heart valve
CPT/HCPCS: 93306

== ENCOUNTER → 2022-05-28 | Outpatient (CLI) | payer OTHER, MEDICARE | END | disposition home or self-care (01) | LOC: SHCH 10:36 | PROVIDERS: ATTEND Internal Medicine Cardiovascular Disease | DX: I65.23 Occlusion and stenosis of bilateral carotid arteries (principal); R09.89 Other specified symptoms and signs involving the circulatory and respiratory systems; I25.10 Atherosclerotic heart disease of native coronary artery without angina pectoris; E11.9 Type 2 diabetes mellitus without complications | CPT/HCPCS: 93880 ==

== ENCOUNTER → 2023-04-15 | Outpatient (CLI) | payer OTHER, MEDICARE ==
[~2023-04-15] MED LIST changes: -LOSA100T58 PO; +LOSA100T59 PO
== END | disposition home or self-care (01) ==
LOC: SHCH 13:06
PROVIDERS: ATTEND Internal Medicine Cardiovascular Disease
DX: I08.1 Rheumatic disorders of both mitral and tricuspid valves (principal); I65.23 Occlusion and stenosis of bilateral carotid arteries; R09.89 Other specified symptoms and signs involving the circulatory and respiratory systems; I11.9 Hypertensive heart disease without heart failure; E78.5 Hyperlipidemia, unspecified; E11.9 Type 2 diabetes mellitus without complications; Z95.2 Presence of prosthetic heart valve; Z95.0 Presence of cardiac pacemaker
CPT/HCPCS: 93306; 93880

== ENCOUNTER 2023-10-19 09:30 | Emergency (ER) | payer OTHER, MEDICARE ==
[~2023-10-19] VITALS: Ht 152.4 cm; Wt 52.2 kg
[~2023-10-19 09:30] MED LIST changes: -ATOR20TA65 PO; +CEPH500T PO; -FLUO20CA36 PO; +GLIP10TA9 PO; +KETO5DRO40 OD; +LACT PO; -LEVO-70 PO; -LOSA100T59 PO; +MELA5TAB66 PO
[2023-10-19] MEDS: ACETAMINOPHEN 500 MG TABLET PO ONE (11:29)
[2023-10-19 11:48] VITALS: BP 171/78; PULSE 78; RESP 16; O2SAT 100
== END 2023-10-19 11:51 | disposition home or self-care (01) ==
LOC: EDH 09:30
DX: M25.551 Pain in right hip (principal); Z88.4 Allergy status to anesthetic agent; Z79.899 Other long term (current) drug therapy
CPT/HCPCS: 73502